=== PATIENT | female | born 1950 | race Caucasian/White ===

== ENCOUNTER → 2016-09-23 | Outpatient (CLI) | payer MEDICARE ==
--- NOTE | 2016-09-23 15:34 | US ---
EXAMINATION TYPE: US thyroid st tissue head/neck DATE OF EXAM: 09/23/2016 3:19 PM COMPARISON: CT in pacs CLINICAL HISTORY: Thyroid nodules seen on recent CT, family history of thyroid CA. GLAND SIZE: Right Lobe: 4.9 x 2.3 x 1.9cm Overall Parenchyma: heterogenous Left Lobe: 4.9 x 2.5 x 2.5cm Overall Parenchyma: heterogeneous Isthmus Thickness: 0.4cm NODULES RIGHT: # of nodules measured on right: 3 1. 2.3 X 2.3 x 2.3 cm hypoechoic mixed nodule at the lower pole with well-defined margins. This nod ule is wider than tall and shows intranodular vascularity. Prior size: no previous 2. 0.6 X 0.5 x 0.6 cm hypoechoic solid nodule at the mid pole with well-defined margins. This nodule is wider than tall and shows no intranodular vascularity. Prior size: no previous 3. 0.4 X 0.3 x 0.4 cm hypoechoic solid nodule at the upper pole with well-defined margins. This nod ule is wider than tall and shows no intranodular vascularity. Prior size: no previous LEFT: # of nodules measured on left: 2 1. 3.0 X 2.1 x 2.5 cm hypoechoic solid nodule at the lower pole with well-defined margins. This no dule is wider than tall and shows intranodular vascularity. Prior size: no previous 2. 1.3 X 1.2 x 1.2 cm hypoechoic mixed nodule at the upper pole with well-defined margins. This nod ule is wider than tall and shows peripheral vascularity. Prior size: no previous ISTHMUS: # of nodules measured in the isthmus: 0 IMPRESSION: Heterogeneous thyroid tissue suggestive of thyroiditis with bilateral multinodular changes.
== END | disposition home or self-care (01) ==
LOC: RADUSWWP 14:58
PROVIDERS: ATTEND Surgery
DX: E04.2 Nontoxic multinodular goiter (principal)
CPT/HCPCS: 36415; 76536; 84439; 84443; 84481

== ENCOUNTER 2016-10-19 13:20 | Day surgery (SDC) | payer MEDICARE ==
[2016-10-19 13:47] VITALS: RESP 16; TEMP 97.7
[2016-10-19] MEDS ORDERED: ALPRAZolam 0.25 MG TAB PO STA (14:01)
[2016-10-19 15:10] VITALS: BP 132/69; PULSE 74
--- NOTE | 2016-10-19 15:14 | US ---
EXAMINATION TYPE: US FNA thyroid DATE OF EXAM: 10/19/2016 2:59 PM COMPARISON: NONE HISTORY: Thyroid nodule on the right. Maximal barrier technique was utilized. After informed consent, skin overlying the lesion was locali zed with ultrasound and the overlying skin prepped and draped. Ultrasound was utilized using sterile technique. Lidocaine was used for local anesthesia. Four passes with a 25-gauge needle were made int o the nodule and aspirated specimen was submitted to cytology. Following the procedure hemostasis ac hieved. No immediate complication. The patient discharged in stable condition. IMPRESSION: STATUS POST ULTRASOUND GUIDED FINE NEEDLE ASPIRATION OF THYROID NODULE, PATHOLOGY IS PEND ING. THIS PROCEDURE WAS PERFORMED BY THE UNDERSIGNED.
--- NOTE | 2016-10-19 15:15 | US ---
EXAMINATION TYPE: US FNA thyroid DATE OF EXAM: 10/19/2016 2:58 PM COMPARISON: NONE HISTORY: Thyroid nodule, E04.1 Maximal barrier technique was utilized. Ultrasound using sterile technique. The skin overlying the le ft-sided nodule was localized with ultrasound and the overlying skin prepped and draped. Lidocaine us ed for local anesthesia. 4 passes with a 25-gauge needle were made into the nodule under ultrasound g uidance. Aspirate specimen submitted to cytology. Following the procedure hemostasis achieved. No imm ediate complication IMPRESSION: Status post ultrasound-guided fine-needle aspiration of thyroid nodule, pathology pending .
== END 2016-10-19 14:55 | disposition home or self-care (01) ==
LOC: RADPROMAIN 13:20
PROVIDERS: ATTEND Surgery
DX: E04.1 Nontoxic single thyroid nodule (principal)
CPT/HCPCS: 10022; 76942; 88173; 88305

== ENCOUNTER → 2019-10-22 | Outpatient (CLI) | payer MEDICARE ==
--- NOTE | 2019-10-22 12:42 | CT ---
EXAMINATION TYPE: CT chest wo con DATE OF EXAM: 10/22/2019 COMPARISON: CT June 28, 2016 HISTORY: Abnormal CXR CT DLP: 471.4 mGycm. Automated Exposure Control for Dose Reduction was Utilized. TECHNIQUE: CT scan of the thorax is performed without IV contrast. FINDINGS: LUNGS: Mild bibasilar linear scarring and/or atelectasis. No suspicious nodules or masses. No pleural effusion or pneumothorax seen bilaterally. MEDIASTINUM: Lack of IV contrast is noted to limit evaluation for mediastinal and especially hilar ad enopathy. There are no definitive greater than 1 cm hilar or mediastinal lymph nodes. No cardiomega ly or pericardial effusion is seen. Enlarged main pulmonary artery redemonstrated, CT findings sugges ting underlying pulmonary hypertension 22. Coronary artery calcification redemonstrated. Thyroid gland also surgically absent with clips at this level. OTHER: Subcentimeter low-density lesion right hepatic dome posteriorly image 42 is diminished in size from prior study. Multilevel spurring in the spine. IMPRESSION: Mild bibasilar linear scarring and/or atelectasis. No suspicious acute pulmonary process. No concerning pulmonary nodules or masses.
== END | disposition home or self-care (01) ==
LOC: RADCTMAIN 11:52
PROVIDERS: ATTEND Internal Medicine
DX: R93.89 Abnormal findings on diagnostic imaging of other specified body structures (principal)
CPT/HCPCS: 71250

== ENCOUNTER → 2019-11-21 | Outpatient (CLI) | payer MEDICARE ==
[2019-11-21 16:35] LABS: Ionized Calcium 3.8 mg/dL (4.5-5.3)
[2019-11-21 16:38] LABS: Magnesium 1.8 mg/dL (1.6-2.3)
[2019-11-21 16:54] LABS: T4, Free (Free Thyroxine) 1.3 ng/dL (0.78-2.19)
== END | disposition home or self-care (01) ==
LOC: LABWHC1 15:53
PROVIDERS: ATTEND Surgery
DX: E89.0 Postprocedural hypothyroidism (principal); Z88.2 Allergy status to sulfonamides; Z98.890 Other specified postprocedural states
CPT/HCPCS: 36415; 82306; 82330; 83735; 84439; 84443; 84481

== ENCOUNTER → 2019-11-25 | Outpatient (CLI) | payer MEDICARE | END | disposition home or self-care (01) | LOC: LABWHC1 15:16 | PROVIDERS: ATTEND Surgery | DX: E89.0 Postprocedural hypothyroidism (principal) | CPT/HCPCS: 36415; 82310; 83970 ==

== ENCOUNTER 2019-12-02 13:13 | Observation (INO) | payer MEDICARE ==
[2019-12-02 13:38] LABS: Glucose,Whole Blood 97 mg/dL (75-99)
--- NOTE | 2019-12-02 13:39 | ED ---
General Adult HPI - General Chief complaint: Neuro Symptoms/Deficit Stated complaint: left side weakness Time Seen by Provider: 12/02/19 13:28 Source: patient, family, EMS, RN notes reviewed Mode of arrival: EMS Limitations: no limitations - History of Present Illness Initial comments: Patient is a pleasant 68-year-old female presenting to the emergency Department with left arm and leg weakness. Onset of symptoms was 1 hour ago around 12:30. No speech problems. No confusion or visual problems. Patient suddenly felt like her left arm was weak. Patient did try to get up however had difficulty with this as her left leg felt weak as well. Symptoms have been continuous since onset. Patient is approximately 7 weeks post thyroidectomy. Patient has had low calcium levels since that time. - Related Data Home Medications Medication Instructions Recorded Confirmed Furosemide [Lasix] 10 mg PO DAILY 06/27/16 10/11/16 Previous Rx's Medication Instructions Recorded Acetaminophen Tab [Tylenol Tab] 650 mg PO Q6H #20 tablet 06/28/16 Allergies Allergy/AdvReac Type Severity Reaction Status Date / Time Sulfa (Sulfonamide Allergy Rash/Hives Verified 12/02/19 13:17 Antibiotics) Review of Systems ROS Statement: Those systems with pertinent positive or pertinent negative responses have been documented in the HPI. ROS Other: All systems not noted in ROS Statement are negative. Constitutional: Denies: fever Eyes: Denies: eye pain ENT: Denies: ear pain Respiratory: Denies: cough Cardiovascular: Denies: chest pain Endocrine: Denies: fatigue Gastrointestinal: Denies: abdominal pain Genitourinary: Denies: dysuria Musculoskeletal: Denies: back pain Skin: Denies: rash Neurological: Reports: weakness, paresthesias Past Medical History Past Medical History: Hypertension History of Any Multi-Drug Resistant Organisms: None Reported Past Surgical History: Appendectomy, Section Additional Past Surgical History / Comment(s): MYOMECTOMY, METROPLASTY,D&C, thyroidectomy Past Anesthesia/Blood Transfusion Reactions: Postoperative Nausea & Vomiting ( PONV) Past Psychological History: No Psychological Hx Reported Smoking Status: Never smoker Past Alcohol Use History: Occasional Past Drug Use History: None Reported - Past Family History Sister(s) Family Medical History: Cancer Additional Family Medical History / Comment(s): thyroid cancer Father Family Medical History: Cancer, Diabetes Mellitus Additional Family Medical History / Comment(s): prostate General Exam Limitations: no limitations General appearance: alert, in no apparent distress Head exam: Present: normocephalic Eye exam: Present: normal appearance, PERRL, EOMI ENT exam: Present: normal oropharynx Neck exam: Present: normal inspection Respiratory exam: Present: normal lung sounds bilaterally Cardiovascular Exam: Present: regular rate, normal rhythm GI/Abdominal exam: Present: soft. Absent: tenderness Extremities exam: Present: normal inspection. Absent: pedal edema, calf tenderness Neurological exam: Present: alert, CN II-XII intact Expanded Neurological exam: Present: protecting the airway Speech: Present: fluid speech Cranial nerves: EOM's Intact: Normal, Facial Sensation: Normal Sensory exam: Upper Extremity Light Touch: Normal, Lower Extremity Light Touch: Normal Motor strength exam: RUE: 5, LUE: 3, LLE: 4 Eye Response: (4) open spontaneously Motor Response: (6) obeys commands Verbal Response: (5) oriented Psychiatric exam: Present: normal affect, normal mood Skin exam: Present: normal color Course Vital Signs 12/02/19 12/02/19 12/02/19 13:14 13:29 13:39 Temperature 98.4 F Pulse Rate 75 87 84 Respiratory 16 16 16 Rate Blood Pressure 165/128 146/117 167/90 O2 Sat by Pulse 95 95 94 L Oximetry 12/02/19 13:51 Temperature Pulse Rate 80 Respiratory 16 Rate Blood Pressure 173/101 O2 Sat by Pulse 97 Oximetry - Reevaluation(s) Reevaluation #1: 12/02/19 13:38 Code stroke was called immediately following seeing the patient 12/02/19 14:18 Patient reevaluated and symptoms are near resolved. Therefore patient is not a candidate for TPA. Case was discussed in detail again with Dr. Swanson who did evaluate patient. He recommends no TPA. He does recommend aspirin and Lipitor. Dr. catherine conway has been paged covering for hospital call for admission. EKG Findings - EKG Comments: EKG Findings:: Normal sinus rhythm 76. MD 142. QRS 86. QT 410. QTc 461. Normal axis. Normal QRS. No acute ST change. Medical Decision Making - Lab Data Result diagrams: 12/02/19 13:39 12/02/19 13:39 Lab Results 03/16/20 03/16/20 03/16/20 Range/Units 13:28 13:39 13:39 WBC 7.5 (3.8-10.6) k/uL RBC 4.83 (3.80-5.40) m/uL Hgb 13.9 (11.4-16.0) gm/dL Hct 42.9 (34.0-46.0) % MCV 88.9 (80.0-100.0) fL MCH 28.8 (25.0-35.0) pg MCHC 32.5 (31.0-37.0) g/dL RDW 13.3 (11.5-15.5) % Plt Count 248 (150-450) k/uL Neutrophils % 59 % Lymphocytes % 30 % Monocytes % 6 % Eosinophils % 2 % Basophils % 1 % Neutrophils # 4.4 (1.3-7.7) k/uL Lymphocytes # 2.2 (1.0-4.8) k/uL Monocytes # 0.5 (0-1.0) k/uL Eosinophils # 0.2 (0-0.7) k/uL Basophils # 0.0 (0-0.2) k/uL PT (9.0-12.0) sec INR (<1.2) APTT (22.0-30.0) sec Sodium 138 (137-145) mmol/L Potassium 3.6 (3.5-5.1) mmol/L Chloride 102 (98-107) mmol/L Carbon Dioxide 27 (22-30) mmol/L Anion Gap 9 mmol/L BUN 20 H (7-17) mg/dL Creatinine 0.66 (0.52-1.04) mg/dL Est GFR (CKD-EPI)AfAm >90 (>60 ml/min/1.73 sqM) Est GFR (CKD-EPI)NonAf >90 (>60 ml/min/1.73 sqM) Glucose 98 (74-99) mg/dL POC Glucose (mg/dL) 97 (75-99) mg/dL POC Glu Generation Engineer ID Avinash Chawla Calcium 7.7 L (8.4-10.2) mg/dL Total Bilirubin 0.4 (0.2-1.3) mg/dL AST 24 (14-36) U/L ALT 22 (4-34) U/L Alkaline Phosphatase 81 (38-126) U/L Total Creatine Kinase (30-135) U/L Total Protein 7.1 (6.3-8.2) g/dL Albumin 4.5 (3.5-5.0) g/dL 12/02/19 12/02/19 Range/Units 13:39 13:39 WBC (3.8-10.6) k/uL RBC (3.80-5.40) m/uL Hgb (11.4-16.0) gm/dL Hct (34.0-46.0) % MCV (80.0-100.0) fL MCH (25.0-35.0) pg MCHC (31.0-37.0) g/dL RDW (11.5-15.5) % Plt Count (150-450) k/uL Neutrophils % % Lymphocytes % % Monocytes % % Eosinophils % % Basophils % % Neutrophils # (1.3-7.7) k/uL Lymphocytes # (1.0-4.8) k/uL Monocytes # (0-1.0) k/uL Eosinophils # (0-0.7) k/uL Basophils # (0-0.2) k/uL PT 10.5 (9.0-12.0) sec INR 1.0 (<1.2) APTT 24.7 (22.0-30.0) sec Sodium (137-145) mmol/L Potassium (3.5-5.1) mmol/L Chloride (98-107) mmol/L Carbon Dioxide (22-30) mmol/L Anion Gap mmol/L BUN (7-17) mg/dL Creatinine (0.52-1.04) mg/dL Est GFR (CKD-EPI)AfAm (>60 ml/min/1.73 sqM) Est GFR (CKD-EPI)NonAf (>60 ml/min/1.73 sqM) Glucose (74-99) mg/dL POC Glucose (mg/dL) (75-99) mg/dL POC Glu Generation Engineer ID Calcium (8.4-10.2) mg/dL Total Bilirubin (0.2-1.3) mg/dL AST (14-36) U/L ALT (4-34) U/L Alkaline Phosphatase (38-126) U/L Total Creatine Kinase 74 (30-135) U/L Total Protein (6.3-8.2) g/dL Albumin (3.5-5.0) g/dL - Radiology Data Radiology results: report reviewed (Computed tomography scan of the brain shows nonspecific white matter changes. Probable atrophy.) Critical Care Time Critical Care Time: Yes Total Critical Care Time: 32 Disposition Clinical Impression: Transient cerebral ischemia Disposition: ADMITTED IP TO THIS HOSP Is patient prescribed a controlled substance at d/c from ED?: No Referrals: Nonstaff,Physician [REFERRING] - 1-2 days Decision Time: 14:20
[2019-12-02 13:51] LABS: Basophils % (A) 1 %; Eosinophils # (A) 0.2 k/uL (0-0.7); Eosinophils % (A) 2 %; HCT 42.9 % (34.0-46.0); HGB 13.9 gm/dL (11.4-16.0); Lymphocytes # (A) 2.2 k/uL (1.0-4.8); Lymphocytes % (A) 30 %; MCH 28.8 pg (25.0-35.0); MCHC 32.5 g/dL (31.0-37.0); MCV 88.9 fL (80.0-100.0); Mean Platelet Volume 7.7; Monocytes # (A) 0.5 k/uL (0-1.0); Monocytes % (A) 6 %; Neutrophils # (A) 4.4 k/uL (1.3-7.7); Neutrophils % (A) 59 %; Platelet Count 248 k/uL (150-450); RBC 4.83 m/uL (3.80-5.40); RDW 13.3 % (11.5-15.5); WBC 7.5 k/uL (3.8-10.6)
[2019-12-02 13:58] LABS: Partial Thromboplastin Time 24.7 sec (22.0-30.0); Prothrombin Time 10.5 sec (9.0-12.0)
--- NOTE | 2019-12-02 14:00 | CT ---
EXAMINATION TYPE: CT brain wo con for TPA DATE OF EXAM: 12/02/2019 COMPARISON: None HISTORY: left side weakness CT DLP: 1088 mGycm Automated exposure control for dose reduction was used. FINDINGS: Some low density is present along the external capsule on the right greater than left. Periventricula r white matter also shows some patchy areas of low-attenuation. Cortical atrophy is likely age-relate d. Calvarium is intact. Paranasal sinuses and mastoid air cells as visualized are unremarkable. The o rbits show symmetric appearance. There is no hydrocephalus or hemorrhage. IMPRESSION: NONSPECIFIC WHITE MATTER LOW-ATTENUATION COULD BE RELATED TO CHRONIC SMALL VESSEL ISCHEMIC CHANGE. UT OBABLE AGE-RELATED ATROPHY.
[2019-12-02 14:10] LABS: ALT 22 U/L (4-34); AST 24 U/L (14-36); African American GFR (CKD) >90 (>60 ml/min/1.73 sqM); Albumin 4.5 g/dL (3.5-5.0); Alkaline Phosphatase 81 U/L (38-126); Anion Gap 9 mmol/L; Blood Urea Nitrogen 20 mg/dL (7-17); Calcium 7.7 mg/dL (8.4-10.2); Carbon Dioxide 27 mmol/L (22-30); Chloride 102 mmol/L (98-107); Glucose 98 mg/dL (74-99); Non-African American GFR(CKD) >90 (>60 ml/min/1.73 sqM); Potassium 3.6 mmol/L (3.5-5.1); Sodium 138 mmol/L (137-145); Total Bilirubin 0.4 mg/dL (0.2-1.3); Total Protein 7.1 g/dL (6.3-8.2)
[2019-12-02 14:17] LABS: Creatine Kinase 74 U/L (30-135)
[2019-12-02] MEDS ORDERED: ASPIRIN 325 MG TAB PO STA (14:20)
[2019-12-02 14:28] LABS: Creatine Kinase MB 0.7 ng/mL (0.0-2.4); Troponin I <0.012 ng/mL (0.000-0.034)
--- NOTE | 2019-12-02 14:32 | CT ---
EXAMINATION TYPE: CT angio head neck DATE OF EXAM: 12/02/2019 HISTORY: left side weakness COMPARISON: 12/02/2019 CT DLP: 536 mGycm. Automated Exposure Control for Dose Reduction was Utilized. TECHNIQUE: CTA scan of the neck is performed with IV Contrast, patient injected with 65 mL of Isovue 370, axial images are obtained, coronal and sagittal reformatted images are reviewed. Three-D recons tructed images are created on an independent workstation and reviewed. FINDINGS: Vertebral basilar system is patent. The visualized carotid arteries are patent. Anterior ce rebral, middle cerebral and posterior cerebral patent. No evidence of aneurysm or occlusion. Hypertrophic and degenerative change of the vertebral column. There stable vessel anatomy of the aortic arch. Left vertebral artery dominant. Proximal great vessel s are patent. Carotid bifurcations are patent. Visualized common carotid arteries are patent. IMPRESSION: 1. Carotid bifurcations and carotid arteries are patent bilaterally with no significant stenosis. 2. No evidence of aneurysm. There is normal enhancement of the intracranial vasculature.
[2019-12-02] MEDS: ATORVASTATIN 80 MG TAB PO SCH ×2 (14:55→21:11)
--- NOTE | 2019-12-02 15:12 | XR ---
EXAMINATION TYPE: XR chest 2V DATE OF EXAM: 12/02/2019 COMPARISON: Prior chest x-ray dated 06/27/2016 HISTORY: Altered mental status, left-sided numbness and weakness TECHNIQUE: Frontal and lateral views of the chest are obtained. FINDINGS: There is no focal air space opacity, pleural effusion, or pneumothorax seen. The cardiac silhouette size is within normal limits. The osseous structures are intact. There are overlying car diac leads. There is eventration of the right hemidiaphragm. Metallic clips present at the level of the thoracic inlet. IMPRESSION: No acute cardiopulmonary process.
[2019-12-02] MEDS ORDERED: HYDROcodone/APAP 5-325MG 1 EACH TAB PO PRN (17:25)
[2019-12-02] MEDS ORDERED: NALOXONE 0.4 MG/ML 1 ML VIAL IV PRN (17:25)
[2019-12-02] MEDS ORDERED: ACETAMINOPHEN TAB 325 MG TAB PO PRN (17:25)
[2019-12-02] MEDS ORDERED: CALCIUM CARBONATE 500 MG CHEWABLE PO SCH (17:30)
--- NOTE | 2019-12-02 17:40 | P.HPIM ---
History of Present Illness H&P Date: 12/02/19 Chief Complaint: Left sidedNumbness 68-year-old female who is status post thyroidectomy presents to the ED for weakness of her left side. Patient states earlier this morning she was running errands without any difficulties. When she came home, she sat on her recliner and started talking on the phone. She all of a sudden experienced a wave of numbness, weakness and tingling of her left upper and lower extremity. Patient states she attempted to stand up but she started feeling lightheaded. This prompted her to call for help and EMS was called. Her symptoms lasted for 1.5-2 hours. Patient states that she had no control of her arms. She denies any slurred speech or confusion. She denies any difficulty eating. Patient reports undergoing thyroidectomy 7 weeks ago and has been suffering symptoms of low calcium. She does report numbness and tingling along with muscle spasms that his generalized since her thyroidectomy. Patient denies any headache, lower ext remity edema, nausea or vomiting, fever or chills, cough, chest pain, shortness of breath, palpitations, changes in urination or bowel habits. No changes in appetite or weight. In the ED, her vital signs are stable except for BP of 173/101. CBC was unremarkable. Cognition panel was negative. CMP showed BUN of 20 and calcium of 7.7. Ionized calcium was 3.9. Troponin was less than 0.012, EKG showing normal sinus rhythm. Brain CT showed nonspecific white matter changes. CTA head and neck was negative. Chest x-ray was negative. Patient was admitted for possible TIA with neurology on consult. Review of Systems Pertinent positives and negatives as discussed in HPI, a complete review of systems was performed and all other systems are negative. Past Medical History Past Medical History: Hypertension History of Any Multi-Drug Resistant Organisms: None Reported Past Surgical History: Appendectomy, Section Additional Past Surgical History / Comment(s): MYOMECTOMY, METROPLASTY,D&C, thyroidectomy Past Anesthesia/Blood Transfusion Reactions: Postoperative Nausea & Vomiting (PONV) Past Psychological History: No Psychological Hx Reported Smoking Status: Never smoker Past Alcohol Use History: Occasional Past Drug Use History: None Reported - Past Family History Sister(s) Family Medical History: Cancer Additional Family Medical History / Comment(s): thyroid cancer Father Family Medical History: Cancer, Diabetes Mellitus Additional Family Medical History / Comment(s): prostate Medications and Allergies Home Medications Medication Instructions Recorded Confirmed Type Calcium Citrate 750 mg PO Q8H 12/02/19 12/02/19 History Levothyroxine Sodium [Synthroid] 112 mcg PO DAILY 12/02/19 12/02/19 History Allergies Allergy/AdvReac Type Severity Reaction Status Date / Time Sulfa (Sulfonamide Allergy Rash/Hives Verified 12/02/19 14:25 Antibiotics) Physical Exam Vitals: Vital Signs Temp Pulse Pulse Resp BP BP Pulse Ox 12/02/19 16:45 98.7 F 65 18 183/84 98 12/02/19 16:00 98.0 F 87 16 147/86 98 12/02/19 15:38 63 16 156/90 99 12/02/19 14:22 75 16 174/101 99 12/02/19 13:51 80 16 173/101 97 12/02/19 13:39 84 16 167/90 94 L 12/02/19 13:29 87 16 146/117 95 12/02/19 13:14 98.4 F 75 16 165/128 95 Intake and Output 12/02/19 12/02/19 12/02/19 06:59 14:59 22:59 Other: Weight 76.204 kg General: [non toxic], [no distress], [appears at stated age] Derm: [warm], [dry] Head: [atraumatic], [normocephalic], [symmetric] Eyes: [EOMI], [no lid lag], [anicteric sclera] Mouth: [no lip lesion], [mucus membranes moist] Cardiovascular: [S1S2 reg], [no murmur], [positive DP pulse bilateral], Lungs: [CTA bilateral], [no rhonchi, no rales] , [no accessory muscle use] Abdominal: [soft], [ nontender to palpation], [no guarding], [no appreciable organomegaly] Ext: [no gross muscle atrophy], [no edema], [no contractures] Neuro: [ CN II-XI grossly intact], [no focal neuro deficits] Psych: [Alert], [oriented], [appropriate affect] Results CBC & Chem 7: 12/02/19 13:39 12/02/19 13:39 Labs: Abnormal Lab Results - Last 24 Hours (Table) 12/02/19 12/02/19 Range/Units 13:39 14:11 BUN 20 H (7-17) mg/dL Calcium 7.7 L (8.4-10.2) mg/dL Ionized Calcium Magaly 3.9 L (4.5-5.3) mg/dL Assessment and Plan Assessment: TIA Hypocalcemia history of thyroidectomy Elevated BUN Patient with signs of left-sided weakness, numbness and tingling. Concerns for TIA. CT brain negative for CVA. CT head and neck unrevealing. Plans: Follow echocardiogram. Follow-up MRI brain. Follow-up neurology consultation. Telemetry monitoring. Follow PT/OT/ST. Advance neurochecks. Continue aspirin and Lipitor. Calcium 7.7, ionized calcium 3.9. Related to history of thyroidectomy. Plans: Continue oral calcium replacement. BUN 20. Likely dehydration. Unknown significance. Plans: Encourage hydration by mouth. DVT prophylaxis: [Separate] Discussed with: [Patient] Anticipated discharge: [1-2 days] Anticipated discharge place: [Home] A total of [35] minutes was spent on the care of this complex patient more than 50% of the time was spent in counseling and care coordination. Patient names her Alvin decision maker if she cant make decisions for herself. Patient will like to be full code.
--- NOTE | 2019-12-02 17:50 | P.CNNES ---
History of Present Illness Consult date: 12/02/19 Requesting physician: Mayur Avelar Reason for Consult: TIA History of Present Illness: Patient is a 68-year-old female admitted to the hospital with left arm and leg weakness. Symptoms started about 1 hour prior to arrival to ER at around 12:30 PM. There were no speech problems. No confusion or visual problems. Patient states that she was sitting in the recliner, talking to someone on the cell phone, when suddenly left side of the body felt numb and weak. She tried to get up, and felt dizzy, nauseous and fell back on the chair. She had difficulty getting up because of left leg weakness. No facial droop noted by her friend. Patient is approximately 7 weeks post thyroidectomy. Patient had low calcium levels. Patient's symptoms while in the ER almost completely resolved (2 hours after onset of symptoms). Therefore patient was not a candidate for TPA. Case was discussed in detail by ED physician with Dr. Chen, who recommended no TPA. Aspirin and Lipitor were recommended. Computed tomography scan of head showed nonspecific white matter low attenuation, could be related to chronic small vessel ischemic changes. Probable age-related atrophy. CTA of head and neck showed carotid bifurcations and carotid arteries are patent bilaterally with no significant stenosis. No evidence of aneurysm. There is normal enhancement of the intracranial vasculature. EKG showed normal sinus rhythm. Chest x-ray showed no acute process. Patient's total calcium is 7.7 which is low. Ionized calcium is 3.9 (4.5-5.3), TSH is normal. PTH 9.0. Patient states that since she had undergone thyroidectomy, she has been having carpopedal spasm due to hypocalcemia. When she washes hands, feels electric melanie ck sensation in her hands. She has been having tingling, muscle spasms and charley horse more mainly on the left side. Her feet has been falling asleep. Patient states that she never had experienced any symptoms in the past what she experienced today. Patient denies any history of hypertension diabetes or tobacco use. She does not take any antiplatelet medication at home. Review of Systems As above in detail. Otherwise completely unremarkable. Past Medical History Past Medical History: Hypertension History of Any Multi-Drug Resistant Organisms: None Reported Past Surgical History: Appendectomy, Section Additional Past Surgical History / Comment(s): MYOMECTOMY, METROPLASTY,D&C, thyroidectomy Past Anesthesia/Blood Transfusion Reactions: Postoperative Nausea & Vomiting (PONV) Past Psychological History: No Psychological Hx Reported Smoking Status: Never smoker Past Alcohol Use History: Occasional Past Drug Use History: None Reported - Past Family History Sister(s) Family Medical History: Cancer Additional Family Medical History / Comment(s): thyroid cancer Father Family Medical History: Cancer, Diabetes Mellitus Additional Family Medical History / Comment(s): prostate Medications and Allergies Home Medications Medication Instructions Recorded Confirmed Type Calcium Citrate 750 mg PO Q8H 12/02/19 12/02/19 History Levothyroxine Sodium [Synthroid] 112 mcg PO DAILY 12/02/19 12/02/19 History Allergies Allergy/AdvReac Type Severity Reaction Status Date / Time Sulfa (Sulfonamide Allergy Rash/Hives Verified 12/02/19 14:25 Antibiotics) Physical Examination - Vital Signs Vital Signs: Vital Signs Temp Pulse Resp BP Pulse Ox 12/02/19 16:00 98.0 F 87 16 147/86 98 12/02/19 15:38 63 16 156/90 99 12/02/19 14:22 75 16 174/101 99 12/02/19 13:51 80 16 173/101 97 12/02/19 13:39 84 16 167/90 94 L 12/02/19 13:29 87 16 146/117 95 12/02/19 13:14 98.4 F 75 16 165/128 95 Intake and Output 12/02/19 12/02/19 12/02/19 06:59 14:59 22:59 Other: Weight 76.204 kg On examination patient is an elderly female, in no distress. Patient is alert awake oriented to time place and person. Speech and language functions are normal. Attention and concentration fund of knowledge adequate. On cranial nerve examination pupils are round and reactive to light, visual gilbert are full, extra ocular muscles are intact without nystagmus. Face is symmetric, tongue protrudes the midline. Palatal elevation and sensation normal. On muscle strength testing there is no pronator drift and the strength is normal in arms and legs distally and proximally reflexes are 1+ and plantars downgoing. Sensory touch is equal. No ataxia for [id number] testing. Tone and bulk of muscles normal. Gait deferred. There is no carotid bruit or murmur, peripheral pulses present. Results - Laboratory Findings CBC and BMP: 12/02/19 13:39 12/02/19 13:39 Abnormal Lab Findings: Abnormal Labs 12/02/19 12/02/19 13:39 14:11 BUN 20 H Calcium 7.7 L Ionized Calcium Magaly 3.9 L Assessment and Plan Assessment: * Probable TIA, manifesting with transient left arm and leg weakness that resolved mostly in 2 hours. Patient has been having recurrent symptoms of hypocalcemia, but is atypical, as its only involving only the left side. Rule out recurrent TIAs. CTA of head and neck showed no stenosis or occlusion. Rule out embolic source. * Status post thyroidectomy 7 weeks ago with subsequent persistent hypocalcemia. Plan: * MRI of the brain to evaluate for an acute stroke. * 2-D echo with bubble study to rule out PFO. * Patient has been started on aspirin 325 mg daily. * We will check fasting a.m. lipid panel, hemoglobin A1c. * Neurology will follow.
[2019-12-02] MEDS: SODIUM CHLORIDE 0.9% 1,000 ML IV SCH (17:53)
[2019-12-02] MEDS ORDERED: LORazepam 2 MG/ML INJ IV PRN (17:55)
--- NOTE | 2019-12-02 19:29 | MR ---
EXAMINATION TYPE: MR brain wo con DATE OF EXAM: 12/02/2019 COMPARISON: None HISTORY: Lt arm numbness/tingling Multiplanar multiecho imaging of the brain was performed without contrast. There is mild cerebral cortical atrophy. There is no mass effect nor midline shift. There is no sign of intracranial hemorrhage. There is no evidence of a cortical infarct. There is no evidence of cereb ral edema. Brainstem appears intact. On the T2 and FLAIR images there are scattered small white matter high signal foci in the periventric ular white matter. These measure up to 8 mm. Total number is approximately 30. The corpus callosum sh ows no atrophy. Sella turcica appears normal. IMPRESSION: Mild atrophy. Numerous white matter high signal foci could relate to demyelinating disease or chronic small vessel ischemia. No evidence of cortical infarct.
[2019-12-02] MEDS: HEPARIN SODIUM,PORCINE 5,000 UNIT/ML 1 ML VIAL SQ SCH (21:11)
[2019-12-02] MEDS: CALCIUM CARBONATE 500 MG CHEWABLE PO SCH (23:21)
[2019-12-02 23:40] LABS: Hemoglobin A1C 5.8 % (4.0-6.0)
[2019-12-03] MEDS: SODIUM CHLORIDE 0.9% 1,000 ML IV SCH ×2 (06:07→13:44)
[2019-12-03] MEDS ORDERED: LEVOTHYROXINE 112 MCG TAB PO SCH (06:30)
[2019-12-03 06:46] LABS: Cholesterol 149 mg/dL (<200); HDL Cholesterol 40 mg/dL (40-60); LDL Cholesterol,Calculated 99 mg/dL (0-99); Triglycerides 50 mg/dL (<150)
[2019-12-03] MEDS ORDERED: ASPIRIN 325 MG TAB PO SCH (09:00)
[2019-12-03 09:20] VITALS: RESP 16
[2019-12-03] MEDS: CALCIUM CARBONATE 500 MG CHEWABLE PO SCH (09:22)
[2019-12-03] MEDS: HEPARIN SODIUM,PORCINE 5,000 UNIT/ML 1 ML VIAL SQ SCH (09:23)
--- NOTE | 2019-12-03 09:49 | ECHOF ---
Referral Reason:Thrombus MEASUREMENTS -------- HEIGHT: 162.6 cm WEIGHT: 76.2 kg BP: 173/101 IVSd: 1.6 cm (0.6 - 1.1) LVIDd: 4.4 cm (3.9 - 5.3) LVPWd: 1.9 cm (0.6 - 1.1) IVSs: 2.0 cm LVIDs: 3.2 cm LVPWs: 1.9 cm LAESV Index (A-L): 33.52 ml/m Ao Diam: 2.9 cm (2.0 - 3.7) AV Cusp: 2.1 cm (1.5 - 2.6) MV EXCURSION: 18.048 mm (> 18.000) MV EF SLOPE: 109 mm/s (70 - 150) EPSS: 0.7 cm MV E Praneeth: 0.58 m/s MV DecT: 240 ms MV A Praneeth: 0.92 m/s MV E/A Ratio: 0.63 AR PHT: 600 ms RAP: 5.00 mmHg RVSP: 36.25 mmHg FINDINGS -------- Sinus rhythm. This was a technically adequate study. The left ventricular size is normal. There is moderate concentric left ventricular hypertrophy. O verall left ventricular systolic function is normal with, an EF between 55 - 60 %. The diastolic fi lling pattern is normal for the age of the patient 8.74. The right ventricle is normal in size. LA is midly dilated 29-33ml/m2. The right atrium is normal in size. Interatrial and interventricular septum intact. The aortic valve is trileaflet and appears structurally normal. There is mild aortic valve sclerosi s. Trace amount of aortic regurgitation. There is no evidence of aortic stenosis. Mild mitral regurgitation is present. Mild tricuspid regurgitation present. There is mild pulmonary hypertension. The right ventricular systolic pressure, as measured by Doppler, is 36.25mmHg. There is no pulmonic regurgitation present. The aortic root size is normal. The inferior vena cava is mildly dilated. There is no pericardial effusion. CONCLUSIONS -------- 1. Sinus rhythm. 2. This was a technically adequate study. 3. The left ventricular size is normal. 4. There is moderate concentric left ventricular hypertrophy. 5. Overall left ventricular systolic function is normal with, an EF between 55 - 60 %. 6. The diastolic filling pattern is normal for the age of the patient 8.74 7. The right ventricle is normal in size. 8. LA is midly dilated 29-33ml/m2. 9. The right atrium is normal in size. 10. Interatrial and interventricular septum intact. 11. The aortic valve is trileaflet and appears structurally normal. 12. There is mild aortic valve sclerosis. 13. Trace amount of aortic regurgitation. 14. There is no evidence of aortic stenosis. 15. Mild mitral regurgitation is present. 16. Mild tricuspid regurgitation present. 17. There is mild pulmonary hypertension. 18. The right ventricular systolic pressure, as measured by Doppler, is 36.25mmHg. 19. There is no pulmonic regurgitation present. 20. The aortic root size is normal. 21. The inferior vena cava is mildly dilated. 22. There is no pericardial effusion. PROFESSOR COMPUTER SCIENCE: Bess Evans RDCS
[2019-12-03 11:22] VITALS: BP 171/86; PULSE 60; TEMP 98.9
--- NOTE | 2019-12-03 12:02 | P.PN ---
Subjective Progress Note Date: 12/03/19 Patient feels fine. Offers no complaints. Objective - Vital Signs Vital signs: Vital Signs Temp 98.9 F 12/03/19 11:18 Pulse 60 12/03/19 11:18 Resp 16 12/03/19 11:18 BP 171/86 12/03/19 11:18 Pulse Ox 98 12/03/19 11:18 Intake & Output 12/02/19 12/03/19 12/03/19 18:59 06:59 18:59 Intake Total 800 480 Balance 800 480 Weight 76.204 kg 82.2 kg Intake: Intake, IV Titration 800 Amount Sodium Chloride 0.9% 1, 800 000 ml @ 100 mls/hr IV . Q10H EDWARDO Rx#:[id number] Oral 480 Other: Voiding Method Toilet # Voids 1 1 - Exam Examination is normal. Nonfocal. - Labs CBC & Chem 7: 12/02/19 13:39 12/02/19 13:39 Labs: Abnormal Lab Results - Last 24 Hours (Table) 12/02/19 12/02/19 Range/Units 13:39 14:11 BUN 20 H (7-17) mg/dL Calcium 7.7 L (8.4-10.2) mg/dL Ionized Calcium Magaly 3.9 L (4.5-5.3) mg/dL Assessment and Plan Assessment: * Possible TIA, manifesting with transient left arm and leg weakness that resolved mostly in 2 hours. Patient has been having recurrent symptoms of hypocalcemia, but is atypical, as its only involving only the left side. Rule out recurrent TIAs. CTA of head and neck showed no stenosis or occlusion. Rule out embolic source. * Status post thyroidectomy 7 weeks ago with subsequent persistent hypocalcemia. Plan: * MRI of the brain showed small vessel disease. No acute ischemic process. * 2-D echo revealed moderate concentric LVH, EF 55-60%. Left atrium is mildly dilated. Interatrial and interventricular septum intact. Mild MR, TR. * Continue aspirin 325 mg daily. * Lipid panel revealed cholesterol 149, LDL 99, HDL 40 and triglycerides 50. Continue statin. * Hemoglobin A1c 5.8. * Your medical management for hypocalcemia * Neurologically clear for discharge.
[2019-12-03 12:10] LABS: ALT 19 U/L (4-34); AST 22 U/L (14-36); African American GFR (CKD) >90 (>60 ml/min/1.73 sqM); Albumin 3.9 g/dL (3.5-5.0); Alkaline Phosphatase 71 U/L (38-126); Anion Gap 6 mmol/L; Blood Urea Nitrogen 14 mg/dL (7-17); Calcium 7.4 mg/dL (8.4-10.2); Carbon Dioxide 25 mmol/L (22-30); Chloride 105 mmol/L (98-107); Glucose 86 mg/dL (74-99); Magnesium 1.8 mg/dL (1.6-2.3); Non-African American GFR(CKD) >90 (>60 ml/min/1.73 sqM); Phosphorus 3.9 mg/dL (2.5-4.5); Potassium 4.1 mmol/L (3.5-5.1); Sodium 136 mmol/L (137-145); Total Bilirubin 0.5 mg/dL (0.2-1.3); Total Protein 6.6 g/dL (6.3-8.2)
--- NOTE | 2019-12-03 12:11 | P.DS ---
Providers Date of admission: 12/02/19 14:33 Expected date of discharge: 12/03/19 Attending physician: Diamond Mas DO Consults: 12/02/19 14:21 Consult Physician Urgent Consulting Provider: Dipak Novoa Consult Reason/Comments: tia Do you want consulting provider notified?: Yes Primary care physician: Roseanna Chou MD Hospital Course: 68-year-old female who is status post thyroidectomy presents to the ED for weakness of her left side. Patient states earlier this morning she was running errands without any difficulties. When she came home, she sat on her recliner and started talking on the phone. She all of a sudden experienced a wave of numbness, weakness and tingling of her left upper and lower extremity. Patient states she attempted to stand up but she started feeling lightheaded. This prompted her to call for help and EMS was called. Her symptoms lasted for 1.5-2 hours. Patient states that she had no control of her arms. She denies any slurred speech or confusion. She denies any difficulty eating. Patient reports undergoing thyroidectomy 7 weeks ago and has been suffering symptoms of low calcium. She does report numbness and tingling along with muscle spasms that his generalized since her thyroidectomy. Patient denies any headache, lower extremity edema, nausea or vomiting, fever or chills, cough, chest pain, shortness of breath, palpitations, changes in urination or bowel habits. No changes in appetite or weight. In the ED, her vital signs are stable except for BP of 173/101. CBC was unremarkable. Cognition panel was negative. CMP showed BUN of 20 and calcium of 7.7. Ionized calcium was 3.9. Troponin was less than 0.012, EKG showing normal sinus rhythm. Brain CT showed nonspecific white matter changes. CTA head and neck was negative. Chest x-ray was negative. Patient was admitted for possible TIA with neurology on consult. Her symptoms of left-sided weakness, numbness and tingling was concerning for TIA. Neurology was consulted and recommended echocardiogram, MRI brain, A1c and lipid panel. PT, OT and ST was also consulted. MRI brain was within normal limits. Echocardiogram showed moderate concentric LVH with EF 55-60%. Patient was seen and examined. No acute events overnight. Patient reports complete resolution of her numbness/weakness/tingling of the extremities. She denies any chest pain, shortness of breath or palpitations. No confusion or slurred speech. No problems with gait. General: [non toxic], [no distress], [appears at stated age] Derm: [warm], [dry] Head: [atraumatic], [normocephalic], [symmetric] Eyes: [EOMI], [no lid lag], [anicteric sclera] Mouth: [no lip lesion], [mucus membranes moist] Cardiovascular: [S1S2 reg], [no murmur], [positive DP pulse bilateral], Lungs: [CTA bilateral], [no rhonchi, no rales] , [no accessory muscle use] Abdominal: [soft], [ nontender to palpation], [no guarding], [no appreciable organomegaly] Ext: [no gross muscle atrophy], [no edema], [no contractures] Neuro: [no focal neuro deficits] Psych: [Alert], [oriented], [appropriate affect] TIA Hypocalcemia history of thyroidectomy Elevated BUN Patient with signs of left-sided weakness, numbness and tingling. Concerns for TIA. CT brain negative for CVA. CT head and neck unrevealing. Echocardiogram shows EF 55-60% with moderate concentric LVH. MRI brain with a normal limits. Lipid panel within normal limits. Plans: Follow-up neurology consultation. Telemetry monitoring. Follow PT/OT/ST. Advance neurochecks. Continue aspirin and Lipitor. Calcium 7.7, ionized calcium 3.9. Related to history of thyroidectomy. Plans: Continue oral calcium replacement. Checking PTH, magnesium, calcium along with ionized calcium, TSH, vitamin D and phosphorus. Attempted to call inspector set up and lay out Dr. Grace Abel awaiting callback. BUN 20. Likely dehydration. Unknown significance. Plans: Encourage hydration by mouth. [Patient admitted for TIA like symptoms. Neurology cleared for discharge. Awaiting callback from her inspector set up and lay out. Likely DC today.] Pertinent Studies: CT brain, CTA head and neck, echocardiogram, MRI brain Patient Condition at Discharge: Stable Plan - Discharge Summary Discharge Rx Participant: No New Discharge Prescriptions: No Action Levothyroxine Sodium [Synthroid] 112 mcg PO DAILY Calcium Citrate 750 mg PO Q8H Discharge Medication List Calcium Citrate 750 mg PO Q8H 12/02/19 [History] Levothyroxine Sodium [Synthroid] 112 mcg PO DAILY 12/02/19 [History] Follow up Appointment(s)/Referral(s): Roseanna Chou MD [Primary Care Provider] - 1 Week Patient Instructions/Handouts: Transient Ischemic Attack (DC)
== END 2019-12-03 17:09 | disposition home or self-care (01) ==
LOC: EC 13:13 → 3SCARD 14:33
PROVIDERS: ADMIT Internal Medicine; ATTEND Internal Medicine
DX: G45.9 Transient cerebral ischemic attack, unspecified (principal); E83.51 Hypocalcemia; R94.4 Abnormal results of kidney function studies; I10 Essential (primary) hypertension; Z79.890 Hormone replacement therapy; E89.0 Postprocedural hypothyroidism; Z79.899 Other long term (current) drug therapy; Z88.2 Allergy status to sulfonamides; Z83.3 Family history of diabetes mellitus; Z80.8 Family history of malignant neoplasm of other organs or systems
CPT/HCPCS: 96361; 96372 ×2; 96374; 99291; 36415; 93005; 93306; 97161; 97165; 80061; 80053 ×2; 84443; 82330 ×2; 82550; 82553; 83735; 84100; 84484; 85025; 85610; 85730; 82306; 83970; 83036; 71046; 70496; 70450; 70498; 70551; G0378 ×2; J2060; J1644 ×2; Q9967

== ENCOUNTER 2019-12-04 15:53 | Emergency (ER) | payer MEDICARE ==
[2019-12-04] MEDS ORDERED: SODIUM CHLORIDE 0.9% 1,000 ML IV STA (16:22)
[2019-12-04 16:34] LABS: Basophils % (A) 0 %; Eosinophils # (A) 0.1 k/uL (0-0.7); Eosinophils % (A) 2 %; HGB 13.5 gm/dL (11.4-16.0); Lymphocytes % (A) 30 %; MCH 28.6 pg (25.0-35.0); MCHC 32.2 g/dL (31.0-37.0); MCV 88.6 fL (80.0-100.0); Mean Platelet Volume 8.1; Monocytes # (A) 0.3 k/uL (0-1.0); Monocytes % (A) 5 %; Neutrophils # (A) 4.3 k/uL (1.3-7.7); Neutrophils % (A) 62 %; Platelet Count 255 k/uL (150-450); RBC 4.74 m/uL (3.80-5.40); WBC 6.9 k/uL (3.8-10.6)
[2019-12-04 16:40] LABS: ALT 19 U/L (4-34); AST 26 U/L (14-36); African American GFR (CKD) >90 (>60 ml/min/1.73 sqM); Albumin 4.4 g/dL (3.5-5.0); Alkaline Phosphatase 77 U/L (38-126); Anion Gap 8 mmol/L; Blood Urea Nitrogen 16 mg/dL (7-17); Calcium 8.2 mg/dL (8.4-10.2); Carbon Dioxide 27 mmol/L (22-30); Chloride 103 mmol/L (98-107); Glucose 123 mg/dL (74-99); Magnesium 1.7 mg/dL (1.6-2.3); Non-African American GFR(CKD) >90 (>60 ml/min/1.73 sqM); Phosphorus 4.2 mg/dL (2.5-4.5); Potassium 3.6 mmol/L (3.5-5.1); Sodium 138 mmol/L (137-145); Total Bilirubin 0.4 mg/dL (0.2-1.3); Total Protein 7.1 g/dL (6.3-8.2)
[2019-12-04 16:48] LABS: Partial Thromboplastin Time 23.8 sec (22.0-30.0); Prothrombin Time 10.4 sec (9.0-12.0)
--- NOTE | 2019-12-04 16:48 | CT ---
EXAMINATION TYPE: CT brain wo con DATE OF EXAM: 12/04/2019 COMPARISON: 12/02/2019 HISTORY: left side weakness CT DLP: 1099.4 mGycm Automated exposure control for dose reduction was used. There is some cerebral cortical atrophy. There is no mass effect nor midline shift. There is no sign of intracranial hemorrhage. Calvarium is intact. IMPRESSION: Negative head CT scan. No change. Mild atrophy.
--- NOTE | 2019-12-04 17:37 | ED ---
Neuro HPI - General Chief Complaint: Neuro Symptoms/Deficit Stated Complaint: Weakness Time Seen by Provider: 12/04/19 16:08 Source: patient, EMS, RN notes reviewed, old records reviewed Mode of arrival: EMS Limitations: no limitations - History of Present Illness Is the patient presenting with stroke symptoms?: Yes -: days(s) Location: left arm, left leg History of same: Yes Place: home Severity: mild Quality: weak, numb, tingling Improves With: none Worsens With: none Context: gradual onset Associated Symptoms: denies other symptoms, fever/chills - Related Data Home Medications: Home Medications Medication Instructions Recorded Confirmed Calcium Citrate 750 mg PO Q8H 12/02/19 12/04/19 Levothyroxine Sodium [Synthroid] 112 mcg PO DAILY 12/02/19 12/04/19 Previous Rx's Medication Instructions Recorded Aspirin 81 mg PO DAILY #30 chewable 12/03/19 Atorvastatin [Lipitor] 80 mg PO HS #30 tab 12/03/19 Allergies/Adverse Reactions: Allergies Allergy/AdvReac Type Severity Reaction Status Date / Time Sulfa (Sulfonamide Allergy Rash/Hives Verified 12/04/19 17:30 Antibiotics) Review of Systems ROS Statement: Those systems with pertinent positive or pertinent negative responses have been documented in the HPI. ROS Other: All systems not noted in ROS Statement are negative. General Exam - General Exam Comments Initial Comments: NIH of 0 Limitations: no limitations General appearance: alert, in no apparent distress Head exam: Present: atraumatic, normocephalic, normal inspection Eye exam: Present: normal appearance, PERRL, EOMI. Absent: scleral icterus, conjunctival injection, periorbital swelling ENT exam: Present: normal exam, mucous membranes moist Neck exam: Present: normal inspection. Absent: tenderness, meningismus, lymphadenopathy Respiratory exam: Present: normal lung sounds bilaterally. Absent: respiratory distress, wheezes, rales, rhonchi, stridor Cardiovascular Exam: Present: regular rate, normal rhythm, normal heart sounds. Absent: systolic murmur, diastolic murmur, rubs, gallop, clicks GI/Abdominal exam: Present: soft, normal bowel sounds. Absent: distended, tenderness, guarding, rebound, rigid Extremities exam: Present: normal inspection, full ROM, normal capillary refill. Absent: tenderness, pedal edema, joint swelling, calf tenderness Back exam: Present: normal inspection Neurological exam: Present: alert, oriented X3, CN II-XII intact Psychiatric exam: Present: normal affect, normal mood Skin exam: Present: warm, dry, intact, normal color. Absent: rash Stroke MDM - Lab Data Result diagrams: 12/04/19 16:08 12/04/19 16:08 Lab Results 12/04/19 12/04/19 12/04/19 Range/Units 16:08 16:08 16:08 WBC 6.9 (3.8-10.6) k/uL RBC 4.74 (3.80-5.40) m/uL Hgb 13.5 (11.4-16.0) gm/dL Hct 42.0 (34.0-46.0) % MCV 88.6 (80.0-100.0) fL MCH 28.6 (25.0-35.0) pg MCHC 32.2 (31.0-37.0) g/dL RDW 13.0 (11.5-15.5) % Plt Count 255 (150-450) k/uL Neutrophils % 62 % Lymphocytes % 30 % Monocytes % 5 % Eosinophils % 2 % Basophils % 0 % Neutrophils # 4.3 (1.3-7.7) k/uL Lymphocytes # 2.0 (1.0-4.8) k/uL Monocytes # 0.3 (0-1.0) k/uL Eosinophils # 0.1 (0-0.7) k/uL Basophils # 0.0 (0-0.2) k/uL PT 10.4 (9.0-12.0) sec INR 1.0 (<1.2) APTT 23.8 (22.0-30.0) sec Sodium 138 (137-145) mmol/L Potassium 3.6 (3.5-5.1) mmol/L Chloride 103 (98-107) mmol/L Carbon Dioxide 27 (22-30) mmol/L Anion Gap 8 mmol/L BUN 16 (7-17) mg/dL Creatinine 0.67 (0.52-1.04) mg/dL Est GFR (CKD-EPI)AfAm >90 (>60 ml/min/1.73 sqM) Est GFR (CKD-EPI)NonAf >90 (>60 ml/min/1.73 sqM) Glucose 123 H (74-99) mg/dL Plasma Lactic Acid Paul (0.7-2.0) mmol/L Calcium 8.2 L (8.4-10.2) mg/dL Ionized Calcium Magaly (4.5-5.3) mg/dL Phosphorus 4.2 (2.5-4.5) mg/dL Magnesium 1.7 (1.6-2.3) mg/dL Total Bilirubin 0.4 (0.2-1.3) mg/dL AST 26 (14-36) U/L ALT 19 (4-34) U/L Alkaline Phosphatase 77 (38-126) U/L Troponin I (0.000-0.034) ng/mL Total Protein 7.1 (6.3-8.2) g/dL Albumin 4.4 (3.5-5.0) g/dL 12/04/19 12/04/19 12/04/19 Range/Units 16:08 16:08 17:50 WBC (3.8-10.6) k/uL RBC (3.80-5.40) m/uL Hgb (11.4-16.0) gm/dL Hct (34.0-46.0) % MCV (80.0-100.0) fL MCH (25.0-35.0) pg MCHC (31.0-37.0) g/dL RDW (11.5-15.5) % Plt Count (150-450) k/uL Neutrophils % % Lymphocytes % % Monocytes % % Eosinophils % % Basophils % % Neutrophils # (1.3-7.7) k/uL Lymphocytes # (1.0-4.8) k/uL Monocytes # (0-1.0) k/uL Eosinophils # (0-0.7) k/uL Basophils # (0-0.2) k/uL PT (9.0-12.0) sec INR (<1.2) APTT (22.0-30.0) sec Sodium (137-145) mmol/L Potassium (3.5-5.1) mmol/L Chloride (98-107) mmol/L Carbon Dioxide (22-30) mmol/L Anion Gap mmol/L BUN (7-17) mg/dL Creatinine (0.52-1.04) mg/dL Est GFR (CKD-EPI)AfAm (>60 ml/min/1.73 sqM) Est GFR (CKD-EPI)NonAf (>60 ml/min/1.73 sqM) Glucose (74-99) mg/dL Plasma Lactic Acid Paul 1.5 (0.7-2.0) mmol/L Calcium (8.4-10.2) mg/dL Ionized Calcium Magaly 4.1 L (4.5-5.3) mg/dL Phosphorus (2.5-4.5) mg/dL Magnesium (1.6-2.3) mg/dL Total Bilirubin (0.2-1.3) mg/dL AST (14-36) U/L ALT (4-34) U/L Alkaline Phosphatase (38-126) U/L Troponin I <0.012 (0.000-0.034) ng/mL Total Protein (6.3-8.2) g/dL Albumin (3.5-5.0) g/dL - NIH Stroke Scale 1a. Level of Consciousness: (0) alert 1b. LOC Questions: (0) answers correctly 1c. LOC Commands: (0) performs tasks correctly 2. Best Gaze: (0) normal 3. Visual: (0) no visual loss 4. Facial Palsy: (0) normal symmetrical movement 5a. Motor Arm Left: (0) no drift 5b. Motor Arm Right: (0) no drift 6a. Motor Leg Left: (0) no drift 6b. Motor Leg Right: (0) no drift 7. Limb Ataxia: (0) absent 8. Sensory: (0) normal 9. Best Language: (0) no aphasia 10. Dysarthria: (0) normal 11. Extinction/Inattention: (0) no abnormality - Thrombolytic Inclusion/Exclusion Thrombolytic Exclusion Criteria: Onset of Symptoms Unknown Thrombolytic Contraindications: Rapidly Improving s/s (A she is currently asymptomatic) - Medical Decision Making 69 female DF for a symptomatically currently left-sided numbness tingling paresthesia type pain. Symptoms resolved patient MRI recently which was negative with same symptoms. Patient can be discharged home - Radiology Data Radiology results: report reviewed (CT brain negative for acute disease), image reviewed - EKG Data -: EKG Interpreted by Me (EKG shows NSR 68 AL 140 QRS 82 QTc 416) Past Medical History Past Medical History: Hypertension Additional Past Medical History / Comment(s): thyroidectomy September 2019 History of Any Multi-Drug Resistant Organisms: None Reported Past Surgical History: Appendectomy, Section Additional Past Surgical History / Comment(s): MYOMECTOMY, METROPLASTY,D&C, thyroidectomy, Past Anesthesia/Blood Transfusion Reactions: Postoperative Nausea & Vomiting (PONV) Past Psychological History: No Psychological Hx Reported Smoking Status: Never smoker Past Alcohol Use History: Occasional Past Drug Use History: None Reported - Past Family History Sister(s) Family Medical History: Cancer Additional Family Medical History / Comment(s): thyroid cancer Father Family Medical History: Cancer, Diabetes Mellitus Additional Family Medical History / Comment(s): prostate Course Vital Signs 12/04/19 12/04/19 12/04/19 15:58 15:59 16:00 Temperature 98.2 F Pulse Rate 70 71 76 Respiratory 18 18 18 Rate Blood Pressure 162/89 O2 Sat by Pulse 97 96 97 Oximetry 12/04/19 12/04/19 12/04/19 16:30 17:00 17:30 Temperature Pulse Rate 77 82 Respiratory 17 16 Rate Blood Pressure 160/88 152/89 152/123 O2 Sat by Pulse 96 Oximetry 12/04/19 18:00 Temperature Pulse Rate 73 Respiratory 16 Rate Blood Pressure 150/84 O2 Sat by Pulse Oximetry - Reevaluation(s) Reevaluation #1: 12/04/19 18:32 medical record and prior ED visit is reviewed Reevaluation #2: 12/04/19 18:[address] Abel who will see patient this week and reEval re low CA Disposition Clinical Impression: Hypocalcemia, Paresthesia of left arm and leg Disposition: HOME SELF-CARE Condition: Good Instructions (If sedation given, give patient instructions): Hypocalcemia (ED), Paresthesia (ED) Is patient prescribed a controlled substance at d/c from ED?: No Referrals: Roseanna Chou MD [Primary Care Provider] - 1-2 days
[2019-12-04] MEDS ORDERED: CALCIUM CHLORIDE 100 MG/ML 10 ML SYRINGE IVP STA (18:30)
[2019-12-04 19:51] VITALS: BP 107/74; PULSE 68; RESP 18; TEMP 98
== END 2019-12-04 19:50 | disposition home or self-care (01) ==
LOC: EC 15:53
DX: E83.51 Hypocalcemia (principal); Z88.2 Allergy status to sulfonamides; Z79.890 Hormone replacement therapy
CPT/HCPCS: 36415; 70450; 80053; 82330; 83605; 83735; 83970; 84100; 84484; 85025; 85610; 85730; 93005; 96361; 96374; 99285

== ENCOUNTER → 2019-12-06 | Outpatient (CLI) | payer MEDICARE ==
[2019-12-06 10:21] LABS: Ionized Calcium 4.1 mg/dL (4.5-5.3)
[2019-12-06 16:19] LABS: Calcium 8.3 mg/dL (8.7-10.3)
== END | disposition home or self-care (01) ==
LOC: LABWHC1 09:09
PROVIDERS: ATTEND Surgery
DX: E89.0 Postprocedural hypothyroidism (principal); Z98.890 Other specified postprocedural states
CPT/HCPCS: 36415; 82310; 82330; 83970

== ENCOUNTER → 2019-12-09 | Outpatient (CLI) | payer MEDICARE ==
[2019-12-09 09:52] LABS: Ionized Calcium 4.1 mg/dL (4.5-5.3)
== END | disposition home or self-care (01) ==
LOC: LABWHC1 08:30
PROVIDERS: ATTEND Surgery
DX: E83.51 Hypocalcemia (principal)
CPT/HCPCS: 36415; 82310; 82330; 83970

== ENCOUNTER → 2019-12-24 | Outpatient (CLI) | payer MEDICARE ==
[2019-12-24 10:42] LABS: Ionized Calcium 4.3 mg/dL (4.5-5.3)
[2019-12-24 10:44] LABS: Calcium 8.3 mg/dL (8.4-10.2)
== END | disposition home or self-care (01) ==
LOC: LABWHC1 10:14
PROVIDERS: ATTEND Surgery
DX: E83.51 Hypocalcemia (principal)
CPT/HCPCS: 36415; 82310; 82330; 83970

== ENCOUNTER → 2019-12-31 | Outpatient (CLI) | payer MEDICARE ==
[2019-12-31 10:53] LABS: Calcium 8.4 mg/dL (8.4-10.2)
[2019-12-31 11:03] LABS: Ionized Calcium 4.3 mg/dL (4.5-5.3)
== END | disposition home or self-care (01) ==
LOC: LAB 10:24
PROVIDERS: ATTEND Surgery
DX: E83.51 Hypocalcemia (principal)
CPT/HCPCS: 82310; 82330; 83970

== ENCOUNTER → 2020-01-15 | Outpatient (CLI) | payer MEDICARE ==
[2020-01-15 11:20] LABS: Calcium 9.2 mg/dL (8.4-10.2)
[2020-01-15 12:53] LABS: Ionized Calcium 4.6 mg/dL (4.5-5.3)
== END | disposition home or self-care (01) ==
LOC: LABWHC1 09:21
PROVIDERS: ATTEND Surgery
DX: E83.51 Hypocalcemia (principal)
CPT/HCPCS: 36415; 82310; 82330; 83970

== ENCOUNTER → 2020-01-24 | Outpatient (CLI) | payer MEDICARE ==
[2020-01-24 09:32] LABS: Ionized Calcium 4.8 mg/dL (4.5-5.3)
[2020-01-24 16:08] LABS: Calcium 9.6 mg/dL (8.7-10.3)
== END | disposition home or self-care (01) ==
LOC: LABWHC1 08:31
PROVIDERS: ATTEND Surgery
DX: E83.51 Hypocalcemia (principal)
CPT/HCPCS: 36415; 82310; 82330; 83970

== ENCOUNTER → 2020-02-12 | Outpatient (CLI) | payer MEDICARE ==
[2020-02-12 11:33] LABS: Ionized Calcium 4.6 mg/dL (4.5-5.3)
[2020-02-12 12:22] LABS: Calcium 8.9 mg/dL (8.4-10.2)
== END | disposition home or self-care (01) ==
LOC: LABWHC1 10:23
PROVIDERS: ATTEND Surgery
DX: E83.51 Hypocalcemia (principal)
CPT/HCPCS: 36415; 82310; 82330; 83970

== ENCOUNTER → 2020-02-26 | Outpatient (CLI) | payer MEDICARE ==
[2020-02-26 14:38] LABS: Ionized Calcium 4.7 mg/dL (4.5-5.3)
[2020-02-27 04:38] LABS: Calcium 9.1 mg/dL (8.7-10.3)
== END | disposition home or self-care (01) ==
LOC: LABWHC1 13:17
PROVIDERS: ATTEND Surgery
DX: E83.51 Hypocalcemia (principal)
CPT/HCPCS: 36415; 82310; 82330; 83970

== ENCOUNTER → 2020-03-09 | Outpatient (CLI) | payer MEDICARE ==
[2020-03-09 14:34] LABS: Ionized Calcium 4.3 mg/dL (4.5-5.3)
[2020-03-09 18:33] LABS: Calcium 8.1 mg/dL (8.7-10.3)
== END | disposition home or self-care (01) ==
LOC: LABWHC1 12:51
PROVIDERS: ATTEND Surgery
DX: E83.51 Hypocalcemia (principal)
CPT/HCPCS: 36415; 82310; 82330; 83970

== ENCOUNTER → 2020-03-19 | Outpatient (CLI) | payer MEDICARE ==
[2020-03-19 16:13] LABS: Ionized Calcium 4.4 mg/dL (4.5-5.3)
[2020-03-20 01:10] LABS: Calcium 8.1 mg/dL (8.7-10.3)
== END | disposition home or self-care (01) ==
LOC: LABWHC1 14:53
PROVIDERS: ATTEND Surgery
DX: E83.51 Hypocalcemia (principal)
CPT/HCPCS: 36415; 82310; 82330; 83970

== ENCOUNTER → 2020-04-02 | Outpatient (CLI) | payer MEDICARE ==
[2020-04-02 15:23] LABS: Ionized Calcium 4.4 mg/dL (4.5-5.3)
[2020-04-02 19:54] LABS: Calcium 8.3 mg/dL (8.7-10.3)
== END | disposition home or self-care (01) ==
LOC: LABWHC1 13:18
PROVIDERS: ATTEND Surgery
DX: E83.51 Hypocalcemia (principal)
CPT/HCPCS: 36415; 82310; 82330; 83970

== ENCOUNTER → 2020-04-16 | Outpatient (CLI) | payer MEDICARE ==
[2020-04-16 12:22] LABS: Ionized Calcium 4.4 mg/dL (4.5-5.3)
[2020-04-16 16:20] LABS: Calcium 8.8 mg/dL (8.7-10.3)
== END | disposition home or self-care (01) ==
LOC: LABWHC1 11:24
PROVIDERS: ATTEND Surgery
DX: E83.51 Hypocalcemia (principal); Z88.2 Allergy status to sulfonamides
CPT/HCPCS: 36415; 82310; 82330; 83970

== ENCOUNTER → 2020-06-12 | Outpatient (CLI) | payer MEDICARE | END | disposition home or self-care (01) | LOC: LABWHC1 09:33 | PROVIDERS: ATTEND Internal Medicine | DX: E20.9 Hypoparathyroidism, unspecified (principal) | CPT/HCPCS: 36415; 82310; 83970 ==

== ENCOUNTER → 2021-06-18 | Outpatient (CLI) | payer MEDICARE ==
[2021-06-19 18:09] LABS: African American GFR (CKD) 109.8 (60.0-200.0); Albumin 4.3 g/dL (3.8-4.9); Anion Gap 16.3 mmol/L (4.00-12.00); BUN/Creat Ratio 29.86 Ratio (12.00-20.00); Blood Urea Nitrogen 16.6 mg/dL (9.0-27.0); Calcium 7.6 mg/dL (8.7-10.3); Carbon Dioxide 22.3 mmol/L (21.6-31.8); Non-African American GFR(CKD) 94.7 (60.0-200.0); Phosphorus 3.7 mg/dL (2.4-5.1); Potassium 4.3 mmol/L (3.5-5.5)
== END | disposition home or self-care (01) ==
LOC: LABWHC1 12:47
PROVIDERS: ATTEND Internal Medicine
DX: E20.9 Hypoparathyroidism, unspecified (principal)
CPT/HCPCS: 36415; 80069; 82310

== ENCOUNTER → 2021-11-17 | Outpatient (CLI) | payer MEDICARE ==
[2021-11-17 15:09] LABS: African American GFR (CKD) 86.6 (60.0-200.0); Albumin 4.3 g/dL (3.8-4.9); Anion Gap 14.4 mmol/L (10.00-18.00); BUN/Creat Ratio 22.13 Ratio (12.00-20.00); Blood Urea Nitrogen 17.7 mg/dL (9.0-27.0); Calcium 8.1 mg/dL (8.7-10.3); Carbon Dioxide 25.6 mmol/L (20.0-27.5); Magnesium 2.1 mg/dL (1.5-2.4); Non-African American GFR(CKD) 74.7 (60.0-200.0); Phosphorus 3.6 mg/dL (2.4-5.1); Potassium 4.2 mmol/L (3.5-5.5)
[2021-11-17 15:10] LABS: T4, Free (Free Thyroxine) 1.94 ng/dL (0.800-1.800)
== END | disposition home or self-care (01) ==
LOC: LABWHC1 07:24
PROVIDERS: ATTEND Internal Medicine
DX: E89.2 Postprocedural hypoparathyroidism (principal); E89.0 Postprocedural hypothyroidism; E83.51 Hypocalcemia
CPT/HCPCS: 36415; 80048; 82040; 83036; 83735; 83970; 84100; 84439; 84443

== ENCOUNTER → 2022-06-28 | Outpatient (CLI) | payer MEDICARE ==
[2022-06-28 19:00] LABS: African American GFR (CKD) 65.6 (60.0-200.0); Albumin 4.3 g/dL (3.8-4.9); Anion Gap 9.1 mmol/L (10.00-18.00); BUN/Creat Ratio 19.7 Ratio (12.00-20.00); Blood Urea Nitrogen 19.7 mg/dL (9.0-27.0); Calcium 8.7 mg/dL (8.7-10.3); Carbon Dioxide 28.9 mmol/L (20.0-27.5); Non-African American GFR(CKD) 56.6 (60.0-200.0); Phosphorus 3.7 mg/dL (2.4-5.1); Potassium 4.4 mmol/L (3.5-5.5)
== END | disposition home or self-care (01) ==
LOC: LABWHC1 14:15
PROVIDERS: ATTEND Internal Medicine
DX: E89.2 Postprocedural hypoparathyroidism (principal)
CPT/HCPCS: 36415; 80048; 82040; 83735; 84100

== ENCOUNTER → 2022-08-26 | Outpatient (CLI) | payer MEDICARE ==
[2022-08-26 18:59] LABS: African American GFR (CKD) 71.9 (60.0-200.0); BUN/Creat Ratio 20.39 Ratio (12.00-20.00); Blood Urea Nitrogen 18.9 mg/dL (9.0-27.0); Calcium 8.6 mg/dL (8.7-10.3); Carbon Dioxide 28.7 mmol/L (20.0-27.5); Non-African American GFR(CKD) 62.1 (60.0-200.0); Potassium 3.2 mmol/L (3.5-5.5); T4, Free (Free Thyroxine) 1.68 ng/dL (0.800-1.800)
== END | disposition home or self-care (01) ==
LOC: LABWHC1 13:24
PROVIDERS: ATTEND Internal Medicine
DX: E89.0 Postprocedural hypothyroidism (principal); E89.2 Postprocedural hypoparathyroidism
CPT/HCPCS: 36415; 80048; 84439; 84443

== ENCOUNTER → 2022-12-16 | Outpatient (CLI) | payer MEDICARE ==
[2022-12-16 22:50] LABS: African American GFR (CKD) 73.3 (60.0-200.0); Anion Gap 10.7 mmol/L (10.00-18.00); BUN/Creat Ratio 18.61 Ratio (12.00-20.00); Blood Urea Nitrogen 16.9 mg/dL (9.0-27.0); Calcium 8.6 mg/dL (8.7-10.3); Carbon Dioxide 29.7 mmol/L (20.0-27.5); Non-African American GFR(CKD) 63.2 (60.0-200.0); Potassium 4.5 mmol/L (3.5-5.5); T4, Free (Free Thyroxine) 1.76 ng/dL (0.800-1.800)
== END | disposition home or self-care (01) ==
LOC: LABWHC1 15:23
PROVIDERS: ATTEND Internal Medicine
DX: E89.2 Postprocedural hypoparathyroidism (principal); E89.0 Postprocedural hypothyroidism
CPT/HCPCS: 36415; 80048; 81050; 84439; 84443

== ENCOUNTER → 2023-09-07 | Outpatient (CLI) | payer MEDICARE ==
[2023-09-07 10:59] LABS: Basophils # (A) 0.05 X 10*3/uL (0.00-0.10); Eosinophils # (A) 0.13 X 10*3/uL (0.04-0.35); Eosinophils % (A) 2.6 %; HGB 14.2 g/dL (12.0-15.0); Immature Grans, Automated 0 %; Lymphocytes # (A) 1.93 X 10*3/uL (0.90-5.00); Lymphocytes % (A) 38.5 %; MCH 29.5 pg (27.0-32.0); MCHC 32.3 g/dL (32.0-37.0); MCV 91.5 FL (80.0-97.0); Monocytes # (A) 0.47 X 10*3/uL (0.20-1.00); Monocytes % (A) 9.4 %; NRBC Per 100 WBC 0 X 10*3/uL (0.00-0.01); Neutrophils # (A) 2.43 X 10*3/uL (1.80-7.70); Neutrophils % (A) 48.5 %; Platelet Count 346 X 10*3/uL (140-440); RBC 4.81 X 10*6/uL (4.10-5.20); RDW 13.7 % (11.5-14.5); WBC 5.01 X 10*3/uL (4.50-10.00)
[2023-09-07 11:34] LABS: ALT 18 U/L (8-44); AST 19 U/L (13-35); Albumin 4.2 g/dL (3.8-4.9); Albumin/Globulin Ratio 1.83 Ratio (1.60-3.17); Alkaline Phosphatase 68 U/L (41-126); Blood Urea Nitrogen 16.2 mg/dL (9.0-27.0); Calcium 9.4 mg/dL (8.7-10.3); Carbon Dioxide 28.9 mmol/L (21.6-31.8); Chloride 104 mmol/L (96-109); Globulin 2.3 g/dL (1.6-3.3); Glucose 89 mg/dL (70-110); LDL Cholesterol,Calculated 121.1 mg/dL (0.0-131.0); Sodium 143 mmol/L (135-145); Total Bilirubin 0.6 mg/dL (0.3-1.2); Total Protein 6.5 g/dL (6.2-8.2); VLDL Calculation 13.72 mg/dL (5.00-40.00)
== END | disposition home or self-care (01) ==
LOC: LABWHC1 07:15
PROVIDERS: ATTEND Internal Medicine
DX: E78.00 Pure hypercholesterolemia, unspecified (principal); E03.9 Hypothyroidism, unspecified; E55.9 Vitamin D deficiency, unspecified; J30.89 Other allergic rhinitis
CPT/HCPCS: 36415; 80053; 80061; 82306; 83970; 84439; 84443; 85025

== ENCOUNTER → 2023-11-08 | Day surgery (SDC) | payer MEDICARE ==
[~2023-11-08] MED LIST: LIDOCAINE 1% INJ 10MG/ML (20 ML MDV) ONE; PROPOFOL 10 MG/ML 20 ML VIAL IV ONE
[2023-11-08 12:06] VITALS: RESP 16; TEMP 97.8
[2023-11-08] MEDS: LACTATED RINGERS 1,000 ML IV ONE (12:18)
--- NOTE | 2023-11-08 13:20 | P.PCN ---
Date of Procedure: 11/08/23 Procedure(s) Performed: BRIEF HISTORY: Patient is a 72-year-old pleasant female scheduled for an elective colonoscopy as a part of screening for colon cancer/positive cologuard. PROCEDURE PERFORMED: Colonoscopy with biopsy. PREOPERATIVE DIAGNOSIS: Screening for colon cancer/positive colioguard. IV sedation per Anesthesia. PROCEDURE: After informed consent was obtained, the patient, was brought into the endoscopy unit. IV sedation was administered by Anesthesia under continuous monitoring. Digital rectal examination was normal. Initially the Olympus CF-160 flexible video colonoscope was then inserted in the rectum, gradually advanced into the cecum without any difficulty. Careful examination was performed as the scope was gradually being withdrawn. Ileocecal valve and the appendiceal orifice were visualized and appeared normal. Prep was excellent. Mucosa of the cecum, ascending colon, transverse colon, descending colon, sigmoid colon, and rectum appeared normal. In the distal rectum just proximal to the dentate line there was mild mucosal erythema with friability and exudates consistent with mild proctitis and biopsies were done from this area. Scattered sigmoid diverticulosis. Retroflexion was performed in the rectum and no lesions were seen. The patient tolerated the procedure well. IMPRESSION: Mild distal proctitis Scattered sigmoid diverticulosis RECOMMENDATIONS: Findings of this examination were discussed with the patient as well as a family. She was advised to follow with the biopsy results. Recommend repeat colonoscopy in 10 years..
[2023-11-08 14:10] VITALS: BP 120/67; PULSE 66
== END ==
LOC: ORWHC2ENDO 11:26
PROVIDERS: ATTEND Internal Medicine Gastroenterology
DX: K57.30 Diverticulosis of large intestine without perforation or abscess without bleeding (principal); I10 Essential (primary) hypertension; E78.5 Hyperlipidemia, unspecified; E03.9 Hypothyroidism, unspecified; K62.89 Other specified diseases of anus and rectum; Z88.2 Allergy status to sulfonamides; Z79.899 Other long term (current) drug therapy; Z98.890 Other specified postprocedural states; Z90.89 Acquired absence of other organs
CPT/HCPCS: 88305; 45380; J2001; J2704